=== PATIENT | male | born 1995 | race American Indian/Alaskan Native ===

== ENCOUNTER 2018-04-03 18:23 | Emergency (ER) | payer SELFPAY ==
[2018-04-03 18:49] VITALS: BP 120/60
== END 2018-04-03 18:49 | disposition left against medical advice (07) ==
LOC: ED 18:23
DX: R55 Syncope and collapse (principal); Z53.21 Procedure and treatment not carried out due to patient leaving prior to being seen by health care provider

== ENCOUNTER 2021-11-17 14:12 | Emergency (ER) | payer SELFPAY ==
[2021-11-17 15:34] VITALS: BP 103/55
[2021-11-17] MEDS ORDERED: ACETAMINOPHEN 500 MG TAB PO STA (16:22)
[2021-11-17] MEDS ORDERED: ONDANSETRON 4 MG ODT TAB PO ONE (16:22)
--- NOTE | 2021-11-17 17:16 | Emergency Department Report ---
HPI - General Chief Complaint: Fever Time Seen by Provider: 11/17/21 16:37 - HPI HPI: Room 44 The patient is a 26-year-old male present with a chief complaint of fever and fatigue. Patient states for the past 2 days he has had a subjective fever and fatigue. Patient missed a cough productive of clear sputum as well as diarrhea. Patient denies nausea vomiting. Patient denies rhinorrhea. Patient denies sick contacts. Patient states he has not been vaccinated against Covid ED Past Medical Hx - Past Medical History Hx Psychiatric Treatment: Yes (ANXIETY) Hx Asthma: Yes Additional medical history: ANEMIA - Surgical History Past Surgical History?: No Additional Surgical History: Left foot surgery - Social History Smoking Status: Never Smoker Substance Use Type: None (Denies illicit drug use) - Medications Home Medications: Home Medications Medication Instructions Recorded Confirmed Last Taken Type HYDROcodone/APAP 10-325 [[place] 1 each PO Q4-6H PRN #20 tablet 12/01/15 Unknown Rx 10/325] Ciprofloxacin HCl/Dexameth 4 drops OT BID 10 Days #7.5 ml 08/21/19 Unknown Rx [Ciprodex Otic Suspension] Ibuprofen [Motrin 800 MG tab] 800 mg PO Q8HR PRN #30 tablet 08/21/19 Unknown Rx Albuterol Mdi (or & Nicu Only) 2 puff IH QID PRN #8.5 gram 11/17/21 Unknown Rx [ProAir HFA Inhaler] Azithromycin [Zithromax Z-RUDY] 0 mg PO DAILY #6 tab 11/17/21 Unknown Rx Benzonatate [Tessalon Perles] 100 mg PO Q8HR #30 capsule 11/17/21 Unknown Rx Cyclobenzaprine [Flexeril] 10 mg PO TID PRN #10 tablet 11/17/21 Unknown Rx ED Review of Systems ROS: Stated complaint: Upper Respiratory Infection Other details as noted in HPI Constitutional: fever (Subjective), malaise Eyes: denies: eye pain ENT: denies: congestion Respiratory: cough Cardiovascular: denies: chest pain Endocrine: no symptoms reported Gastrointestinal: diarrhea. denies: nausea, vomiting Genitourinary: denies: dysuria Musculoskeletal: denies: back pain Neurological: headache Physical Exam - Physical Exam Vital Signs: Vital Signs 11/17/21 15:26 Temperature 101.8 F H Pulse Rate 88 Respiratory 20 Rate Blood Pressure 103/55 [Right] O2 Sat by Pulse 96 Oximetry Physical Exam: GENERAL: The patient is well-developed well-nourished male lying on stretcher appearing to be in mild discomfort. [] HEENT: Normocephalic. Atraumatic. Extraocular motions are intact. Patient has moist mucous membranes. NECK: Supple. No meningitic signs are noted. Trachea midline CHEST/LUNGS: Clear to auscultation. There is no respiratory distress noted. HEART/CARDIOVASCULAR: Regular. There is no tachycardia. There is no gallop rub or murmur. ABDOMEN: Abdomen is soft, nontender. Patient has normal bowel sounds. There is no abdominal distention. SKIN: There is no rash. There is no edema. There is no diaphoresis. NEURO: The patient is awake, alert, and oriented. The patient is cooperative. The patient has no focal neurologic deficits. The patient has normal speech. GCS 15 MUSCULOSKELETAL: There is no evidence of acute injury. ED Course Vital Signs 11/17/21 15:26 Temperature 101.8 F H Pulse Rate 88 Respiratory 20 Rate Blood Pressure 103/55 [Right] O2 Sat by Pulse 96 Oximetry ED Medical Decision Making - Lab Data Result diagrams: 11/17/21 17:18 11/17/21 17:18 Laboratory Tests 11/17/21 11/17/21 11/17/21 17:15 17:18 17:18 WBC 5.0 RBC 4.74 Hgb 13.0 Hct 40.2 MCV 85 MCH 27 L MCHC 32 RDW 13.4 Plt Count 178 Lymph % (Auto) 27.9 Garrard % (Auto) 14.5 H Eos % (Auto) 0.0 Baso % (Auto) 0.3 Lymph # (Auto) 1.4 Garrard # (Auto) 0.7 Eos # (Auto) 0.0 Baso # (Auto) 0.0 Seg Neutrophils % 57.3 Seg Neutrophils # 2.8 Sodium Potassium Chloride Carbon Dioxide Anion Gap BUN Creatinine Estimated GFR BUN/Creatinine Ratio Glucose Lactic Acid 1.10 Calcium Total Bilirubin AST ALT Alkaline Phosphatase Total Protein Albumin Albumin/Globulin Ratio Lipase Influenza A (Rapid) Negative Influenza B (Rapid) Negative 11/17/21 17:18 WBC RBC Hgb Hct MCV MCH MCHC RDW Plt Count Lymph % (Auto) Garrard % (Auto) Eos % (Auto) Baso % (Auto) Lymph # (Auto) Garrard # (Auto) Eos # (Auto) Baso # (Auto) Seg Neutrophils % Seg Neutrophils # Sodium 136 L Potassium 3.4 L Chloride 99.0 Carbon Dioxide 23 Anion Gap 17 BUN 12 Creatinine 1.1 Estimated GFR > 60 BUN/Creatinine Ratio 11 Glucose 105 H Lactic Acid Calcium 9.4 Total Bilirubin 0.40 AST 19 ALT 14 Alkaline Phosphatase 70 Total Protein 7.8 Albumin 4.5 Albumin/Globulin Ratio 1.4 Lipase 20 Influenza A (Rapid) Influenza B (Rapid) Influenza negative - Radiology Data Radiology results: report reviewed (Chest x-ray), image reviewed (Chest x-ray) interpreted by me: Chest x-ray-no definite focal infiltrates, no pneumothorax [facility] [address] [place] [address] XRay Report Signed Patient: ASPEN GALAVIZ MR#: [id number] : 1995 Acct:[id number] Age/Sex: 26 / M ADM Date: 11/17/21 Loc: ED Attending Dr: Ordering Physician: SHMUEL BROWN MD Date of Service: 11/17/21 Procedure(s): XR chest routine 2V Accession Number(s): [id number] cc: SHMUEL BROWN MD Fluoro Time In Minutes: XR chest routine 2V INDICATION / CLINICAL INFORMATION: Cough, fever. COMPARISON: None available. FINDINGS: SUPPORT DEVICES: None. HEART /PULMONARY VASCULATURE: No significant abnormality. LUNGS / PLEURA: No significant pulmonary or pleural abnormality. No pneumothorax. ADDITIONAL FINDINGS: No significant additional findings. IMPRESSION: 1. No acute findings. Signer Name: Danny Pappas MD Signed: 11/17/2021 5:57 PM Workstation Name: [id number] Transcribed By: AMY Dictated By: DANNY PAPPAS MD Electronically Authenticated By: DANNY PAPPAS MD Signed Date/Time: 11/17/211756 DD/ 55 TD/TT: Print Cancel - Differential Diagnosis Influenza, pneumonia, Covid, bronchitis, Critical care attestation.: If time is entered above; I have spent that time in minutes in the direct care of this critically ill patient, excluding procedure time. ED Disposition Clinical Impression: Lower resp. tract infection, Cough Disposition: 01 HOME / SELF CARE / HOMELESS Is pt being admited?: No Does the pt Need Aspirin: No Condition: Stable Instructions: Cough, Adult Additional Instructions: You should go to your nearest local Covid testing center to be tested for coronavirus. Return to the emergency department should you develop worsening symptoms, inability to tolerate food or liquids, high fever or any other concerns Prescriptions: Cyclobenzaprine [Flexeril] 10 mg PO TID PRN #10 tablet PRN Reason: Muscle Spasm Albuterol Mdi (or & Nicu Only) [ProAir HFA Inhaler] 2 puff IH QID PRN #8.5 gram PRN Reason: Shortness Of Breath Benzonatate [Tessalon Perles] 100 mg PO Q8HR #30 capsule Azithromycin [Zithromax Z-RUDY] 0 mg PO DAILY #6 tab Referrals: [facility] [Provider Group] - 3-5 Days Time of Disposition: 20:05
[2021-11-17 17:32] LABS: Basophils % (Auto) 0.3 % (0.0-1.8); Hematocrit 40.2 % (35.5-45.6); Lymphocytes # (Auto) 1.4 K/mm3 (1.2-5.4); Lymphocytes % (Auto) 27.9 % (13.4-35.0); Mean Corpuscular HGB Conc 32 % (32-34); Mean Corpuscular Volume 85 fl (84-94); Monocytes # (Auto) 0.7 K/mm3 (0.0-0.8); Monocytes % (Auto) 14.5 % (0.0-7.3); Platelet Count 178 K/mm3 (140-440); Red Blood Count 4.74 M/mm3 (3.65-5.03); Red Cell Distribution Width 13.4 % (13.2-15.2)
[2021-11-17 17:51] LABS: Alanine Aminotransferase 14 units/L (7-56); Albumin 4.5 g/dL (3.9-5); BUN/Creatinine Ratio 11; Blood Urea Nitrogen 12 mg/dL (9-20); Calcium 9.4 mg/dL (8.4-10.2); Hemolysis Index 4
--- NOTE | 2021-11-17 18:01 | XRay Report ---
XR chest routine 2V INDICATION / CLINICAL INFORMATION: Cough, fever. COMPARISON: None available. FINDINGS: SUPPORT DEVICES: None. HEART /PULMONARY VASCULATURE: No significant abnormality. LUNGS / PLEURA: No significant pulmonary or pleural abnormality. No pneumothorax. ADDITIONAL FINDINGS: No significant additional findings. IMPRESSION: 1. No acute findings. Signer Name: Hammad Pappas MD Signed: 11/17/2021 5:57 PM Workstation Name: [id number]
== END 2021-11-17 20:12 | disposition home or self-care (01) ==
LOC: ED 14:12
DX: J06.9 Acute upper respiratory infection, unspecified (principal); J45.909 Unspecified asthma, uncomplicated
CPT/HCPCS: 36415; 71046; 80053; 82140; 83690; 85025; 87040; 87400; 99284; J3490; Q0162